=== PATIENT | female | born 1980 | race Caucasian/White ===

== ENCOUNTER → 2022-10-30 08:27 | Outpatient (CLI) | payer OTHER, SELFPAY ==
--- NOTE | 2022-10-30 08:29 | DI.MG.S_ITS ---
BILATERAL DIGITAL SCREENING MAMMOGRAM 3D/2D WITH CAD: 10/30/2022 CLINICAL: Routine screening. Baseline exam. No prior exams were available for comparison. Both breasts are heterogeneously dense, which may obscure small masses (category c / 51-75% glandular tissue). Current study was also evaluated with a Computer Aided Detection (CAD) system. There is a possible oval asymmetry with a microlobulated margin in the right breast at 10 o'clock posterior depth. There is architectural distortion associated with the asymmetry. No other significant masses, calcifications, or other findings are seen in either breast. IMPRESSION: INCOMPLETE: NEEDS ADDITIONAL IMAGING EVALUATION The possible oval asymmetry in the right breast is indeterminate. Additional views with possible ultrasound are recommended. This exam was interpreted at Station ID: [id number]. NOTE: For mammograms, a report in lay terms will be sent to the patient. Approximately 15% of breast malignancies will not be visualized mammographically. In the management of a palpable breast mass, a negative mammogram must not discourage biopsy of a clinically suspicious lesion. Electronically Signed By: Tonya garcia/bryan:10/30/2022 13:40:47 letter sent: Additional Imaging Needed ACR BI-RADS Category 0: Incomplete 3340F
== END ==
PROVIDERS: PCP Family Medicine; Referring Provider Family Medicine; Visit Provider Family Medicine
DX: Z12.31 Encounter for screening mammogram for malignant neoplasm of breast (principal)
CPT/HCPCS: 77063; 77067

== ENCOUNTER → 2022-11-25 14:17 | Outpatient (CLI) | payer OTHER, SELFPAY | PROVIDERS: PCP Family Medicine; Visit Provider Family Medicine | DX: J02.8 Acute pharyngitis due to other specified organisms (principal); J02.9 Acute pharyngitis, unspecified; B97.89 Other viral agents as the cause of diseases classified elsewhere | CPT/HCPCS: 87070 ==

== ENCOUNTER → 2022-12-07 10:20 | Outpatient (CLI) | payer OTHER, SELFPAY ==
--- NOTE | 2022-12-07 | DI.MG.S_ITS ---
UNILATERAL RIGHT DIGITAL DIAGNOSTIC MAMMOGRAM 3D/2D WITH ADDITIONAL VIEWS: 12/07/2022 CLINICAL: Additional evaluation requested from prior study. Comparison is made to exam dated: 10/30/2022 mammogram - [facility]. The right breast is heterogeneously dense, which may obscure small masses (category c / 51-75% glandular tissue). There is a possible oval asymmetry with a microlobulated margin in the right breast at 7 o'clock posterior depth. This is not definitively seen in additional views. This is less prominent and decreased in size. There is no architectural distortion associated with the asymmetry as previously described on screening mammogram. There also is a possible 0.5 cm oval equal density asymmetry in the right breast posterior depth lateral region seen on the craniocaudal view only. No other significant masses or calcifications are seen in the breast. IMPRESSION: INCOMPLETE: NEEDS ADDITIONAL IMAGING EVALUATION The possible oval asymmetry in the right breast at 7 o'clock posterior depth is indeterminate. An ultrasound is recommended for further evaluation and is scheduled to immediately follow this examination. The possible 0.5 cm oval equal density asymmetry in the right breast posterior depth lateral region seen on the craniocaudal view only resembles a cyst and is indeterminate. An ultrasound is recommended for further evaluation and is scheduled to immediately follow this examination. This exam was interpreted at Station ID: [id number]. NOTE: For mammograms, a report in lay terms will be sent to the patient. Approximately 15% of breast malignancies will not be visualized mammographically. In the management of a palpable breast mass, a negative mammogram must not discourage biopsy of a clinically suspicious lesion. Electronically Signed By: Garrison Orellana M.D. aty/:12/07/2022 16:45:01 ACR BI-RADS Category 0: Incomplete 3340F
--- NOTE | 2022-12-07 | DI.US.S_ITS ---
ULTRASOUND OF RIGHT BREAST: 12/07/2022 CLINICAL: Right breast pain. Comparison is made to exams dated: 12/07/2022 mammogram and 10/30/2022 mammogram - [facility]. Color flow and real-time ultrasound of the right breast were performed. Morin scale images of the real-time examination were reviewed. There is a 0.5 cm x 0.4 cm x 0.4 cm wider than tall oval cyst in the right breast at 7 o'clock posterior depth 4 cm from the nipple. This oval cyst is anechoic with posterior acoustic enhancement. This likely correlates with mammography findings. Color flow imaging demonstrates that there is no vascularity present. There also is a 0.5 cm x 0.3 cm x 0.5 cm wider than tall oval cyst in the right breast at 7 o'clock middle depth 3 cm from the nipple. This oval cyst is anechoic with posterior acoustic enhancement. This also likely correlates with mammography findings. Color flow imaging demonstrates that there is no vascularity present. IMPRESSION: BENIGN There is no sonographic evidence of malignancy. The 0.5 cm x 0.4 cm x 0.4 cm wider than tall oval cyst in the right breast at 7 o'clock posterior depth is consistent with a simple cyst and is benign. The 0.5 cm x 0.3 cm x 0.5 cm wider than tall oval cyst in the right breast at 7 o'clock middle depth is consistent with a simple cyst and is benign. A 1 year screening mammogram is recommended. Findings and recommendations were conveyed to the patient during today's evaluation. This exam was interpreted at Station ID: [id number]. Electronically Signed By: Garrison gupta/:12/07/2022 16:47:36 letter sent: Normal Exam Ultrasound BI-RADS: 2 Benign
== END ==
PROVIDERS: PCP Family Medicine; Referring Provider Family Medicine; Visit Provider Family Medicine
DX: R92.8 Other abnormal and inconclusive findings on diagnostic imaging of breast (principal); N60.01 Solitary cyst of right breast
CPT/HCPCS: 76642; 77065; G0279

== ENCOUNTER → 2023-12-09 12:54 | Outpatient (CLI) | payer OTHER, SELFPAY ==
--- NOTE | 2023-12-09 | DI.MG.S_ITS ---
BILATERAL DIGITAL SCREENING MAMMOGRAM 3D/2D WITH CAD: 12/09/2023 CLINICAL: Routine screening. Family history of breast cancer. Comparison is made to exams dated: 12/07/2022 mammogram and 10/30/2022 mammogram - [facility]. Both breasts are heterogeneously dense, which may obscure small masses (category c / 51-75% glandular tissue). Current study was also evaluated with a Computer Aided Detection (CAD) system. No significant masses, calcifications, or other findings are seen in either breast. There has been no significant interval change. IMPRESSION: NEGATIVE There is no mammographic evidence of malignancy. A 1 year screening mammogram is recommended. Based on the Tyrer Cuzick model (a risk assessment model) the patient's lifetime risk is 16.8% and her 10 year risk is 2.4%. According to the ACR, ACS, and NCCN guidelines, an annual breast MRI exam along with mammogram is recommended if the patient's lifetime risk is 20% or greater. This exam was interpreted at Station ID: [id number]. NOTE: For mammograms, a report in lay terms will be sent to the patient. Approximately 15% of breast malignancies will not be visualized mammographically. In the management of a palpable breast mass, a negative mammogram must not discourage biopsy of a clinically suspicious lesion. Electronically Signed By: Paulo beaulieu/bryan:12/09/2023 14:28:21 letter sent: Normal Exam ACR BI-RADS Category 1: Negative 3341F
== END ==
PROVIDERS: PCP Family Medicine; Referring Provider Family Medicine; Visit Provider Family Medicine
DX: Z12.31 Encounter for screening mammogram for malignant neoplasm of breast (principal); Z80.3 Family history of malignant neoplasm of breast; R92.333 Mammographic heterogeneous density, bilateral breasts
CPT/HCPCS: 77063; 77067

== ENCOUNTER → 2024-12-20 11:15 | Outpatient (CLI) | payer OTHER, SELFPAY ==
--- NOTE | 2024-12-20 11:17 | DI.MG.S_ITS ---
BILATERAL DIGITAL SCREENING MAMMOGRAM 3D/2D WITH CAD: 12/20/2024 CLINICAL: Routine screening. Family history of breast cancer. Comparison is made to exams dated: 12/09/2023 mammogram, 10/30/2022 mammogram, and 12/07/2022 mammogram - [facility]. The breasts are heterogeneously dense, which may obscure small masses (category c / 51-75% glandular tissue). Current study was also evaluated with a Computer Aided Detection (CAD) system. No significant masses, calcifications, or other findings are seen in either breast. There has been no significant interval change. IMPRESSION: NEGATIVE There is no mammographic evidence of malignancy. A 1 year screening mammogram is recommended. Based on the Tyrer Cuzick model (a risk assessment model) the patient's lifetime risk is 16.8% and her 10 year risk is 2.6%. According to the ACR, ACS, and NCCN guidelines, an annual breast MRI exam along with mammogram is recommended if the patient's lifetime risk is 20% or greater. This exam was interpreted at Station ID: [id number]. NOTE: For mammograms, a report in lay terms will be sent to the patient. Approximately 15% of breast malignancies will not be visualized mammographically. In the management of a palpable breast mass, a negative mammogram must not discourage biopsy of a clinically suspicious lesion. Electronically Signed By: Garrison caballero/bryan:12/21/2024 07:49:56 letter sent: Normal Exam ACR BI-RADS Category 1: Negative
== END ==
PROVIDERS: PCP Family Medicine; Referring Provider Family Medicine; Visit Provider Family Medicine
DX: Z12.31 Encounter for screening mammogram for malignant neoplasm of breast (principal); Z80.3 Family history of malignant neoplasm of breast; R92.333 Mammographic heterogeneous density, bilateral breasts
CPT/HCPCS: 77063; 77067